=== PATIENT | female | born 1990 | race Caucasian/White ===

== ENCOUNTER 2024-10-22 08:36 | Outpatient (CLI) | payer OTHER ==
[~2024-10-22 08:36] MED LIST: VISTARIL25 MG PO
== END 2024-10-22 08:38 | disposition home or self-care (01) ==
LOC: PRENATAL 08:36
PROVIDERS: ATTEND Obstetrics & Gynecology Maternal & Fetal Medicine
DX: O44.00 Complete placenta previa NOS or without hemorrhage, unspecified trimester (principal); O09.529 Supervision of elderly multigravida, unspecified trimester; Z3A.20 20 weeks gestation of pregnancy

== ENCOUNTER → 2025-01-14 12:22 | Outpatient (CLI) | payer OTHER | END | disposition home or self-care (01) | LOC: PRENATAL 12:22 | PROVIDERS: ATTEND Obstetrics & Gynecology Maternal & Fetal Medicine | DX: O26.843 Uterine size-date discrepancy, third trimester (principal); O36.8130 Decreased fetal movements, third trimester, not applicable or unspecified; O09.523 Supervision of elderly multigravida, third trimester; Z3A.33 33 weeks gestation of pregnancy ==

== ENCOUNTER 2025-02-14 07:16 | Outpatient (CLI) | payer OTHER ==
[~2025-02-14] VITALS: Ht 154.9 cm; Wt 68.9 kg
[2025-02-14 06:30] VITALS: BP 115/83
[2025-02-14] MEDS ORDERED: PRENATABS RX T1 EACH PO (07:30)
[2025-02-14] MEDS ORDERED: RINGERS SOLUTION,LACTATED 1,000 ML IV SCH (07:45)
[2025-02-14] MEDS ORDERED: TERBUTALINE SULFATE 1 MG/ML AMPUL SUBCUTANEO ONE (07:45)
[2025-02-14 08:54] LABS: URINE APPEARANCE Cloudy; URINE BILIRRUBIN Negative (NEGATIVE); URINE BLOOD Negative; URINE COLOR Yellow; URINE GLUCOSE Negative (NEGATIVE); URINE LEUKOCYTE Large; URINE NITRATE Negative; URINE PROTEIN Negative (NEGATIVE); URINE UROBILINOGEN 0.2 E.U./dl
[2025-02-14 09:01] LABS: BASO % 0.3 % (0.1-1.2); EOS # 0.02 (0.04-0.54); EOS % 0.2 % (0.7-7.0); LYMPH # 1.70 (1.18-3.74); LYMPH % 14.6 % (19.3-53.1); MEAN PLATELET VOLUME 12.10 fl (9.4-12.4); MONO # 0.53 (0.24-0.82); MONO % 4.5 % (4.7-12.5); NEUT # 9.29 (1.56-6.13); NEUT % 79.5 % (34.0-71.1); RED CELL DISTRIBUTION WIDTH 13.6 % (11.6-14.4)
[2025-02-14 09:02] LABS: URINE CAST 7.50 uL (0.0-1.40); URINE EPITHELIAL CELLS 123.5 uL (0.0-38.8); URINE RBC 11.0 uL (0.0-20.8); URINE WBC 224.6 uL (0.0-23.2)
[2025-02-14 09:12] LABS: INR 0.95
[2025-02-14 09:25] LABS: ALT/SGPT 17.0 U/L (12-78); AST/SGOT 15.0 U/L (15-37); BILIRUBIN TOTAL 0.39 mg/dL (0.3-1.2); BUN CREA RATIO 13.0 (7.0-25.0); CREATININE SERUM 0.56 mg/dL (0.55-1.02); GFR 123.19; GLOBULINA 3.5 G/DL (2.4-3.5); GLUCOSE FASTING 86.0 mg/dL (65-100); OSMOLALITY SERUM 277.0 MOSM/KG (275-295)
[2025-02-14 10:22] LABS: URINE BACTERIA > 9821.5 uL (0.0-1933); URINE KETONE 40 (NEGATIVE)
[2025-02-14 12:17] VITALS: BP 112/77
[2025-02-14] MEDS ORDERED: CEFAZOLIN SODIUM 1,000 MG VIAL ONE (12:53)
[2025-02-14] MEDS ORDERED: CEFAZOLIN SODIUM 1,000 MG VIAL IV SCH (13:00)
[2025-02-14 15:07] VITALS: BP 124/77
[2025-02-14 19:24] VITALS: BP 113/74
[2025-02-14 21:00] VITALS: BP 113/74
== END 2025-02-14 21:03 | disposition home or self-care (01) ==
LOC: OBS/DEL 07:16
PROVIDERS: ATTEND Obstetrics & Gynecology
DX: O26.893 Other specified pregnancy related conditions, third trimester (principal); R10.20 Pelvic and perineal pain unspecified side; Z3A.36 36 weeks gestation of pregnancy